=== PATIENT | female | born 1945 | race Caucasian/White ===

== ENCOUNTER 2024-02-27 13:26 | Emergency (ER) | payer OTHER ==
[2024-02-27 14:51] VITALS: BP 132/71; PULSE 72; RESP 16; TEMP 97.9; BMI 24.4
[2024-02-27 16:14] LABS: HEMATOCRIT 38.1 % (32.4-45.2); HEMOGLOBIN 12.3 G/dL (10.7-15.3); MCH 28.1 pg (25.7-33.7); MCHC 32.2 g/dl (32.0-36.0); MEAN CELL VOLUME 87.3 fl (80-96); MEAN PLT VOLUME 7.7 fl (7.5-11.1); PLATELET COUNT 354.4 10^3/uL (134-434); RBC 4.36 10^6/uL (3.60-5.2); RDW 17.1 % (11.6-15.6); WHITE BLOOD COUNT 8.9 10^3/uL (4.0-10.8)
[2024-02-27 16:23] LABS: ALBUMIN 3.7 g/dl (3.4-5.0); BILIRUBIN,TOTAL 1.1 mg/dl (0.2-1); CALCIUM 9.3 mg/dl (8.5-10.1); CREATININE 0.7 mg/dl (0.6-1.3); POTASSIUM 4.7 mmol/L (3.5-5.1); TOT PROT 6.5 g/dl (6.4-8.2)
[2024-02-27] MEDS ORDERED: AZITHROMYCIN 500 MG TABLET ONE (17:22)
[2024-02-27] MEDS: AZITHROMYCIN 250 MG TABLET PO ONE (17:34)
== END 2024-02-27 19:02 | disposition home or self-care (01) ==
LOC: FER 13:26
DX: R06.02 Shortness of breath (principal); R05.9 Cough, unspecified; J18.9 Pneumonia, unspecified organism; Z20.822 Contact with and (suspected) exposure to COVID-19
CPT/HCPCS: 0241U-QW; 36415; 71045-TC-FY; 80053; 85025; 99284-25